=== PATIENT | male | born 1945 | race Caucasian/White ===

== ENCOUNTER 2020-05-27 05:34 | Day surgery (SDC) | payer OTHER ==
[~2020-05-27] VITALS: Ht 177.8 cm; Wt 106.0 kg
[~2020-05-27 05:34] MED LIST: ATOR40TA PO; Aspir 8181 MG PO; BUPR75 PO; CEPH500 PO; CLOP75 PO; CYCL10 PO; HYDACE5 PO; IBUP800 PO; Isosorbide Mono30 MG PO; LOSA25 PO; LOSA50 PO; METO50ER PO; OXYACE5T PO; OXYB5ER PO; TERA5 PO; ZOCOR20 MG PO; ZYRTEC10 M2 PO
--- NOTE | 2020-05-27 10:14 | NUR ---
PT VERBALIZED UNDERSTANDING OF D/C INSTRUCTIONS, PAPERWORK PROVIDED IN FOLDER. PT'S CALLED FOR RIDE HOME. TR BAND REMOVED FROM RIGHT WRIST, RED CLOTH DOT APPLIED, ARM BOARD ON FOR SUPPORT. NO BLEEDING OR OOZING NOTED, SOFT NON TENDER. IV REMOVED FROM LAC WITH CATH INTACT, PRESSURE DRESSING APPLIED. VSS. PT AMBULATES WITH STEADY GAIT. NO ACUTE DISTRESS NOTED AT TIME OF DISCHARGE, ENCOUARGE TO FOLLOW UP WITH PROVIDED SCHEDULED. DENIES NEED FOR W/C RIDE OUT TO VEHICLE.
== END 2020-05-27 10:40 | disposition home or self-care (01) ==
LOC: MHTC 05:34
DX: I25.118 Atherosclerotic heart disease of native coronary artery with other forms of angina pectoris (principal); I11.0 Hypertensive heart disease with heart failure; I50.30 Unspecified diastolic (congestive) heart failure; E11.9 Type 2 diabetes mellitus without complications; E78.5 Hyperlipidemia, unspecified; E66.3 Overweight; Z79.82 Long term (current) use of aspirin; Z79.02 Long term (current) use of antithrombotics/antiplatelets; Z68.33 Body mass index [BMI] 33.0-33.9, adult
CPT/HCPCS: 93458; 99152; 99153; C1769; C1894; J2250; J3010; J7030; Q9967

== ENCOUNTER 2021-01-27 09:17 | Day surgery (SDC) | payer OTHER ==
[~2021-01-27] VITALS: Ht 177.8 cm; Wt 102.2 kg
== END 2021-01-27 11:10 | disposition home or self-care (01) ==
LOC: ORSCSDS 09:17 → ORD 10:30 → ORSCSDS 10:30
PROVIDERS: Surgery
PROC: 0DBN8ZX Excision of Sigmoid Colon, Via Natural or Artificial Opening Endoscopic, Diagnostic (ICD-10-PCS; principal; 2021-01-27 10:30)
PROC: 0DBH8ZX Excision of Cecum, Via Natural or Artificial Opening Endoscopic, Diagnostic (ICD-10-PCS; principal; 2021-01-27 10:30)
DX: Z12.11 Encounter for screening for malignant neoplasm of colon (principal); Z86.010 Personal history of colon polyps; D12.0 Benign neoplasm of cecum; D12.5 Benign neoplasm of sigmoid colon; E11.9 Type 2 diabetes mellitus without complications; E78.5 Hyperlipidemia, unspecified; E66.9 Obesity, unspecified; Z68.33 Body mass index [BMI] 33.0-33.9, adult; Z79.82 Long term (current) use of aspirin; Z79.899 Other long term (current) drug therapy
CPT/HCPCS: 82947; 88305; J2704; J7120